=== PATIENT | female | born 1970 | race American Indian/Alaskan Native ===

== ENCOUNTER 2017-01-22 11:33 | Emergency (ER) | payer MEDICARE ==
[2017-01-22] MEDS ORDERED: PERCOCET 5/325 PO ONE (13:33)
--- NOTE | 2017-01-22 14:38 | XRay Report ---
FINAL REPORT PROCEDURE: XR KNEE BILAT 3V TECHNIQUE: Three views of the bilateral knees are obtained. HISTORY: Bikl knee pain COMPARISON: No prior studies are available for comparison. FINDINGS: Right knee: Moderate to prominent medial compartmental narrowing is seen with large medial and moderate lateral osteophytes. No fracture or joint effusion is seen. Left knee: Mild medial compartmental narrowing is seen with large medial osteophytes and small lateral osteophytes. No joint effusion or fracture is seen. IMPRESSION: Moderate osteoarthritic changes are seen in the knees, right greater than left.
--- NOTE | 2017-01-22 16:36 | Emergency Department Report ---
Entered by GULSHAN GU, acting as scribe for MARISOL RYDER PA. ED Lower Extremity HPI - General Chief Complaint: Extremity Injury, Lower Stated Complaint: RT KNEE PAIN Time Seen by Provider: 01/22/17 12:43 Source: patient Mode of arrival: Ambulatory Limitations: Physical Limitation - History of Present Illness Initial Comments: 46 y/o female with PMHx of HTN and osteoarthritis, presents to the ED c/o chronic bilateral knee pain that became worse 4 days ago. Denies fever and chills. Pain is 7/10 on left knee and 10/10 on right knee. Patient is ambulatory with cane. Denies any new activity or injury. No alleviating factors despite taking tramadol, muscle relaxers and OTC medicine and worse with weight bearing. NKDA. Patient by Kraig under x-ray of her knees showed that she had arthritis and a told her that she did not have any fluid buildup. Kraig told her that she started to have knee replacement surgery. Denies any redness or change of temperature to knees. MD Complaint: other (bilateral knee pain is chronic from arthritis) Onset/Timin -: days(s) Injury: Knee: Right, Left (right worse than left pain worse over the last 4 days.) Type of Injury: other (arthritis to both knees.) Place: home Severity: moderate, severe Severity scale (0 -10): 7 (7/10 left knee and 10/10 right knee) Improves With: immobilization, rest Worsens With: weight bearing, movement Context: other (chronic knee pain secondary to arthritis) Associated Symptoms: swelling, ambulatory (with cane). denies: snap/pop sensation, numbness, tingling Treatments Prior to Arrival: NSAIDS, other (other medication) - Related Data Previous Rx's Medication Instructions Recorded Last Taken Type Ibuprofen [Motrin] 800 mg PO Q8H #30 tablet 04/22/14 Unknown Rx traMADol [Ultram 50 MG tab] 50 mg PO Q6HR PRN #30 tablet 04/22/14 Unknown Rx Acetaminophen/Codeine [Tylenol 1 tab PO Q6H PRN #12 tab 01/22/17 Unknown Rx /Codeine # 3 tab] Naproxen [Naprosyn TAB] 500 mg PO BID PRN #21 tablet 01/22/17 Unknown Rx Allergies Allergy/AdvReac Type Severity Reaction Status Date / Time No Known Allergies Allergy Verified 01/22/17 11:39 ED Review of Systems Comment: All other systems reviewed and negative Constitutional: denies: chills, fever Respiratory: no symptoms reported Cardiovascular: denies: chest pain, palpitations, edema, syncope Gastrointestinal: denies: abdominal pain, nausea, vomiting, diarrhea Musculoskeletal: joint swelling, arthralgia. denies: back pain Skin: denies: rash Neurological: abnormal gait (both knees due to chronic pain). denies: headache , weakness, numbness, paresthesias, vertigo ED Past Medical Hx - Past Medical History Previous Medical History?: Yes Hx Hypertension: Yes Hx Arthritis: Yes Additional medical history: chronic lower back pain - Surgical History Past Surgical History?: Yes Additional Surgical History: hysterectomy - Family History Family history: hypertension - Social History Smoking Status: Never Smoker Substance Use Type: Prescribed - Medications Home Medications: Home Medications Medication Instructions Recorded Confirmed Last Taken Type Ibuprofen [Motrin] 800 mg PO Q8H #30 tablet 04/22/14 Unknown Rx traMADol [Ultram 50 MG tab] 50 mg PO Q6HR PRN #30 tablet 04/22/14 Unknown Rx Acetaminophen/Codeine [Tylenol 1 tab PO Q6H PRN #12 tab 01/22/17 Unknown Rx /Codeine # 3 tab] Naproxen [Naprosyn TAB] 500 mg PO BID PRN #21 tablet 01/22/17 Unknown Rx ED Physical Exam - General Limitations: Physical Limitation General appearance: alert, in no apparent distress - Head Head exam: Present: atraumatic, normocephalic, normal inspection - Eye Eye exam: Present: normal appearance, PERRL, EOMI Pupils: Present: normal accommodation - ENT ENT exam: Present: normal exam, normal orophraynx, mucous membranes moist, TM's normal bilaterally, normal external ear exam - Neck Neck exam: Present: normal inspection, full ROM. Absent: tenderness, meningismus, lymphadenopathy - Respiratory Respiratory exam: Present: normal lung sounds bilaterally. Absent: wheezes, rales, rhonchi, chest wall tenderness, accessory muscle use - Cardiovascular Cardiovascular Exam: Present: regular rate, normal rhythm, normal heart sounds - GI/Abdominal GI/Abdominal exam: Present: soft, normal bowel sounds. Absent: distended, tenderness, rigid - Extremities Exam Extremities exam: Present: normal inspection, normal capillary refill. Absent: full ROM (patient with limited range of motion to both knees to chronic pain and arthritis right is greater than left), tenderness, pedal edema, joint swelling, calf tenderness - Expanded Lower Extremity Exam Right Hip exam: Present: normal inspection, full ROM, pelvic stability. Absent: tenderness, swelling, abrasion, laceration, ecchymosis, deformity, crepidus, dislocation, erythema, external rotation, internal rotation, shortening Upper Leg exam: Present: normal inspection, full ROM. Absent: tenderness, swelling, abrasion, laceration, ecchymosis, deformity, crepidus, dislocation, erythema Knee exam: Present: normal inspection, crepidus, full knee extension (very painful with extension). Absent: full ROM (Limited range of motion due to pain. Painful with flexion and extension), tenderness, swelling, abrasion, laceration, ecchymosis, deformity, erythema, effusion, pain w/ pronation/ supination, posterior draw sign, pain/laxity with valgus, pain/laxity with varus Lower Leg exam: Present: normal inspection, full ROM. Absent: tenderness, swelling, abrasion, laceration, ecchymosis, deformity, crepidus, dislocation, erythema, palpable cord, Lu's sign Ankle exam: Present: normal inspection, full ROM. Absent: tenderness, swelling , abrasion, laceration, ecchymosis, deformity, crepidus, dislocation, erythema Foot/Toe exam: Present: normal inspection, full ROM. Absent: tenderness, swelling, abrasion, laceration, ecchymosis, deformity, crepidus, dislocation, erythema, amputation, puncture wound, foreign body, calcaneal tenderness, tenderness at base of 5th metatarsal, nail avulsion, subungual hematoma Neuro vascular tendon exam: Present: no vascular compromise. Absent: pulse deficit, abnormal cap refill, motor deficit, sensory deficit, tendon deficit, extremity cold to touch, pallor, abnormal 2-point discrimination, decreased fine /light touch, foot drop, peroneal nerve deficit, significant pain with passive ROM of distal joint Gait: Positive: observed and limited by pain (patient able to weight-bear but she said it hurts.) Left Hip exam: Present: normal inspection, full ROM, pelvic stability. Absent: tenderness, swelling, abrasion, laceration, ecchymosis, deformity, crepidus, dislocation, erythema, external rotation, internal rotation, shortening Upper Leg exam: Present: normal inspection, full ROM. Absent: tenderness, swelling, abrasion, laceration, ecchymosis, deformity, crepidus, dislocation, erythema Knee exam: Present: normal inspection, crepidus, full knee extension (patient is able to extend the wrist that is very painful). Absent: full ROM ( limited range of motion left knee due to chronic pain from arthritis), tenderness, swelling, abrasion, laceration, ecchymosis, deformity, dislocation, erythema, effusion, pain w/ pronation/supination, posterior draw sign, pain/laxity with valgus, pain/laxity with varus Lower Leg exam: Present: normal inspection, full ROM. Absent: tenderness, swelling, abrasion, laceration, ecchymosis, deformity, crepidus, dislocation, erythema, palpable cord, Lu's sign Ankle exam: Present: normal inspection, full ROM. Absent: tenderness, swelling , abrasion, laceration, ecchymosis, deformity, crepidus, dislocation, erythema Foot/Toe exam: Present: normal inspection, full ROM. Absent: tenderness, swelling, abrasion, laceration, ecchymosis, deformity, crepidus, dislocation, erythema, amputation, puncture wound, foreign body, calcaneal tenderness, tenderness at base of 5th metatarsal, nail avulsion, subungual hematoma Neuro vascular tendon exam: Present: no vascular compromise. Absent: pulse deficit, abnormal cap refill, motor deficit, sensory deficit, tendon deficit, extremity cold to touch, pallor, abnormal 2-point discrimination, decreased fine /light touch, foot drop, peroneal nerve deficit, significant pain with passive ROM of distal joint Gait: Positive: observed and limited by pain - Back Exam Back exam: Present: normal inspection, full ROM. Absent: tenderness, CVA tenderness (R), CVA tenderness (L), muscle spasm, paraspinal tenderness, vertebral tenderness, rash noted - Neurological Exam Neurological exam: Present: alert, oriented X3, CN II-XII intact, abnormal gait (abnormal gait due to chronic bilateral knee pain.), reflexes normal - Psychiatric Psychiatric exam: Present: normal affect, normal mood - Skin Skin exam: Present: warm, dry, intact, normal color. Absent: rash ED Course Vital Signs 01/22/17 01/22/17 11:42 13:55 Temperature 98.3 F Pulse Rate 77 Respiratory 18 16 Rate Blood Pressure 168/92 O2 Sat by Pulse 100 Oximetry - Reevaluation(s) Reevaluation #1: 01/22/17 16:23 Patient given Percocet 5/325 mg 2 tablets in the emergency room for knee pain since the pain is now down to a 2 out of 10. ED Lower Extremity MDM - Radiology Data Radiology results: report reviewed X-rays reveal marked arthritis of both knees and worse than left no joint effusions.. - Medical Decision Making ED course: Patient here for acute exacerbation of chronic bilateral knee pain from arthritis. She has been followed currently and had her last x-ray last year. Pt is taking flexeril and Ultram but she said is not helping and her pain has increased over the last 4 days. Patient was given Percocet 5/325 mg 2 tablets in the emergency room which helped her pain. She is not currently being followed by orthopedic doctor. Discussed with her that her x-ray revealed moderate arthritis in both knees and the right is worse than the left. I informed patient that she will need to follow up with orthopedic doctor for further evaluation and treatment. Patient has understand the discharge instructions and diagnosis and discharged home with family with prescription for naproxen and Tylenol No. 3. ED Disposition Clinical Impression: Arthralgia of both knees Osteoarthritis Qualifiers: Osteoarthritis location: knee Osteoarthritis type: unspecified Laterality: bilateral Qualified Code(s): M17.0 - Bilateral primary osteoarthritis of knee Disposition: - TO HOME OR SELFCARE Is pt being admited?: No Does the pt Need Aspirin: No Condition: Stable Instructions: Arthralgia (ED), Osteoarthritis (ED), Knee Pain (ED), Knee Exercises (GEN) Additional Instructions: These follow-up with orthopedic doctor and referred to discharge instruction paperwork for phone number and address. You can also continue to follow up at [facility] Please do not Drive or operate heavy machinery while taking Tylenol No. 3 as this medication will cause drowsiness Prescriptions: Acetaminophen/Codeine [Tylenol /Codeine # 3 tab] 1 tab PO Q6H PRN #12 tab PRN Reason: Pain Naproxen [Naprosyn TAB] 500 mg PO BID PRN #21 tablet PRN Reason: Pain Referrals: RODRIGUE KIRBY MD [Staff Physician] - 3-5 Days [facility] [Outside] - 3-5 Days Forms: Work/School Release Form(ED) This documentation as recorded by the RICCARDO martinez ELIZABETH,accurately reflects the service I personally performed and the decisions made by me,MARISOL RYDER PA.
[2017-01-22 22:30] VITALS: BP 153/85
== END 2017-01-22 16:47 | disposition home or self-care (01) ==
LOC: ED 11:33
DX: M17.0 Bilateral primary osteoarthritis of knee (principal); I10 Essential (primary) hypertension; G89.29 Other chronic pain
CPT/HCPCS: 99283

== ENCOUNTER 2019-09-05 03:53 | Emergency (ER) | payer MEDICARE ==
[2019-09-05] MEDS ORDERED: diphenhydrAMINE 25 MG CAP PO ONE (06:27)
[2019-09-05] MEDS ORDERED: METOCLOPRAMIDE 10 MG TAB PO ONE (06:27)
[2019-09-05] MEDS ORDERED: ACETAMINOPHEN 500 MG TAB PO ONE (06:27)
[2019-09-05] MEDS ORDERED: predniSONE 20 MG TAB PO ONE (06:28)
--- NOTE | 2019-09-05 06:47 | Emergency Department Report ---
ED General Adult HPI - General Chief complaint: Nausea/Vomiting/Diarrhea Stated complaint: BODY ACHE,VOMITING Time Seen by Provider: 09/05/19 06:22 Source: patient Mode of arrival: Ambulatory Limitations: No Limitations - History of Present Illness Initial comments: Ms. Smith is a 49 y/o aaf who presents for cough sore throat or ear pain sinus pain nausea vomiting diarrhea times one tonight. Patient now positive symptoms have all resolved with ibuprofen taken prior to arrival in the ED patient states history of recurrent sinusitis. We'll [id number] hands postnasal drip at this time. For pain described as burning scratchy itchy. Patient thinks she may have strep throat. Patient lives with her long-term boyfriend who has no symptoms. Symptoms are improved with rest in position. Symptoms are exacerbated by respiratory environmental exposure. Onset/Timin -: days(s) Location: chest Radiation: non-radiation Severity scale (0 -10): 4 Quality: aching Consistency: intermittent Worsens with: cold therapy (1 week please) Associated Symptoms: cough, fever/chills, headaches, nausea/vomiting Treatments Prior to Arrival: none - Related Data Previous Rx's Medication Instructions Recorded Last Taken Type Ibuprofen [Motrin] 800 mg PO Q8H #30 tablet 04/22/14 Unknown Rx traMADoL [Ultram 50 MG tab] 50 mg PO Q6HR PRN #30 tablet 04/22/14 Unknown Rx Acetaminophen/Codeine [Tylenol 1 tab PO Q6H PRN #12 tab 01/22/17 Unknown Rx /Codeine # 3 tab] Naproxen [Naprosyn TAB] 500 mg PO BID PRN #21 tablet 01/22/17 Unknown Rx Acetaminophen [Acetaminophen TAB] 1,000 mg PO Q6HR PRN #30 tablet 09/05/19 Unknown Rx Metoclopramide [Reglan] 10 mg PO Q6H PRN #30 tablet 09/05/19 Unknown Rx diphenhydrAMINE [Benadryl CAP] 25 mg PO Q6HR PRN #30 capsule 09/05/19 Unknown Rx Allergies Allergy/AdvReac Type Severity Reaction Status Date / Time No Known Allergies Allergy Verified 01/22/17 11:39 ED Review of Systems ROS: Stated complaint: BODY ACHE,VOMITING Other details as noted in HPI Constitutional: chills, fever, malaise Eyes: denies: eye pain, eye discharge, vision change ENT: ear pain, throat pain, congestion Respiratory: cough, shortness of breath. denies: wheezing Cardiovascular: as per HPI. denies: chest pain, palpitations, dyspnea on exertion, edema, syncope Endocrine: no symptoms reported Gastrointestinal: abdominal pain, nausea, vomiting, diarrhea Genitourinary: denies: urgency, dysuria, discharge Musculoskeletal: arthralgia. denies: back pain, joint swelling Skin: denies: rash, lesions Neurological: headache. denies: weakness, paresthesias Psychiatric: denies: anxiety, depression Hematological/Lymphatic: denies: easy bleeding, easy bruising ED Past Medical Hx - Past Medical History Hx Hypertension: Yes Hx Arthritis: Yes Additional medical history: chronic lower back pain, fibromyalgia - Surgical History Past Surgical History?: Yes Additional Surgical History: hysterectomy, R knee replacement - Social History Smoking Status: Never Smoker Substance Use Type: Alcohol - Medications Home Medications: Home Medications Medication Instructions Recorded Confirmed Last Taken Type Ibuprofen [Motrin] 800 mg PO Q8H #30 tablet 04/22/14 Unknown Rx traMADoL [Ultram 50 MG tab] 50 mg PO Q6HR PRN #30 tablet 04/22/14 Unknown Rx Acetaminophen/Codeine [Tylenol 1 tab PO Q6H PRN #12 tab 01/22/17 Unknown Rx /Codeine # 3 tab] Naproxen [Naprosyn TAB] 500 mg PO BID PRN #21 tablet 01/22/17 Unknown Rx Acetaminophen [Acetaminophen TAB] 1,000 mg PO Q6HR PRN #30 tablet 09/05/19 Unknown Rx Metoclopramide [Reglan] 10 mg PO Q6H PRN #30 tablet 09/05/19 Unknown Rx diphenhydrAMINE [Benadryl CAP] 25 mg PO Q6HR PRN #30 capsule 09/05/19 Unknown Rx ED Physical Exam - General Limitations: No Limitations General appearance: alert, in no apparent distress - Head Head exam: Present: atraumatic, normocephalic - Eye Eye exam: Present: normal appearance, PERRL, EOMI Pupils: Present: normal accommodation - ENT ENT exam: Present: mucous membranes moist - Expanded ENT Exam Expanded Ear exam: Present: normal external inspection Mouth exam: Absent: trismus Teeth exam: Present: normal inspection Throat exam: Positive: tonsillar erythema, tonsillomegaly. Negative: tonsillar exudate, R peritonsillar mass, L peritonsillar mass - Neck Neck exam: Present: normal inspection, full ROM, lymphadenopathy. Absent: tenderness, meningismus, thyromegaly - Respiratory Respiratory exam: Present: normal lung sounds bilaterally. Absent: respiratory distress, wheezes, stridor, chest wall tenderness - Cardiovascular Cardiovascular Exam: Present: normal rhythm, normal heart sounds. Absent: systolic murmur, diastolic murmur, rubs, gallop - GI/Abdominal GI/Abdominal exam: Present: soft, normal bowel sounds. Absent: distended, tenderness, guarding, rebound, rigid, bruit, pulsatile mass - Rectal Rectal exam: Present: deferred - External exam: Present: other (deferred ) - Extremities Exam Extremities exam: Present: normal inspection, full ROM, normal capillary refill. Absent: tenderness, pedal edema, joint swelling - Back Exam Back exam: Present: normal inspection - Neurological Exam Neurological exam: Present: alert, oriented X3, CN II-XII intact, normal gait, reflexes normal. Absent: motor sensory deficit - Psychiatric Psychiatric exam: Present: normal affect, normal mood. Absent: depressed, agitated - Skin Skin exam: Present: warm, dry, intact, normal color. Absent: rash, erythema, urticaria, pallor, ecchymosis ED Course Vital Signs 09/05/19 09/05/19 03:57 03:58 Temperature 99.2 F 99.2 F Pulse Rate 109 H 109 H Respiratory 18 18 Rate Blood Pressure 151/88 151/88 O2 Sat by Pulse 95 95 Oximetry ED Medical Decision Making - Medical Decision Making Patient states headache is improved ,vital signs are improved ,there is no nausea Nvomiting patient is tolerating by mouth intake at this time plan DC'd home prescription for Tylenol Benadryl Reglan. Strep are negative , patient will follow up PCP in 2-3 days she'll return to emergency department should symptoms worsen. pt verbalized agreement and understanding with discharge plan. pt dc'd to home in stable condition at this time. Critical care attestation.: If time is entered above; I have spent that time in minutes in the direct care of this critically ill patient, excluding procedure time. ED Disposition Clinical Impression: Nausea vomiting and diarrhea, Viral syndrome Headache Qualifiers: Headache type: unspecified Headache chronicity pattern: acute headache Intractability: not intractable Qualified Code(s): R51 - Headache Disposition: DC- TO HOME OR SELFCARE Is pt being admited?: No Does the pt Need Aspirin: No Condition: Stable Instructions: Acute Nausea and Vomiting (ED), Acute Headache (ED) Prescriptions: Acetaminophen [Acetaminophen TAB] 1,000 mg PO Q6HR PRN #30 tablet PRN Reason: Headache diphenhydrAMINE [Benadryl CAP] 25 mg PO Q6HR PRN #30 capsule PRN Reason: Headache Metoclopramide [Reglan] 10 mg PO Q6H PRN #30 tablet PRN Reason: headache Referrals: PRIMARY CARE,MD [Primary Care Provider] - 3-5 Days Forms: Accompanied Note, Work/School Release Form(ED) Time of Disposition: 07:10
[2019-09-05 07:39] VITALS: BP 146/81
== END 2019-09-05 07:39 | disposition home or self-care (01) ==
LOC: ED 03:53
DX: B34.9 Viral infection, unspecified (principal); I10 Essential (primary) hypertension; M19.90 Unspecified osteoarthritis, unspecified site; Z90.710 Acquired absence of both cervix and uterus; Z79.1 Long term (current) use of non-steroidal anti-inflammatories (NSAID); Z79.899 Other long term (current) drug therapy
CPT/HCPCS: 87400; 99282; J7512